=== PATIENT | male | born 1940 | race Two or more races ===

== ENCOUNTER 2022-10-13 22:31 | Emergency (ER) | payer OTHER ==
[~2022-10-13] VITALS: Ht 177.8 cm; Wt 87.1 kg
[2022-10-13 23:49] VITALS: BP 140/85
== END 2022-10-14 00:35 | disposition home or self-care (01) ==
LOC: ER 22:31
DX: Z48.817 Encounter for surgical aftercare following surgery on the skin and subcutaneous tissue (principal); I10 Essential (primary) hypertension